=== PATIENT | male | born 1995 | race Caucasian/White ===

== ENCOUNTER 2021-04-30 17:43 | Emergency (ER) | payer BC ==
[2021-04-30 18:03] VITALS: BP 126/59; PULSE 69; TEMP 98.2; BMI 22.9
== END 2021-04-30 19:06 | disposition home or self-care (01) ==
LOC: FER 17:43
DX: J01.90 Acute sinusitis, unspecified (principal)
CPT/HCPCS: 99283-25; C9803; U0003; U0005

== ENCOUNTER 2021-10-17 14:33 | Emergency (ER) | payer BC ==
[2021-10-17] MEDS ORDERED: ACETAMINOPHEN 325 MG TABLET (FP) PO ONE (14:36)
[2021-10-17] MEDS ORDERED: ACETAMINOPHEN 325 MG TABLET (FP) ONE (15:08)
[2021-10-17 15:22] VITALS: BP 128/77; PULSE 80; TEMP 99; BMI 25.8
== END 2021-10-17 16:10 | disposition home or self-care (01) ==
LOC: FER 14:33
DX: S06.0X1A Concussion with loss of consciousness of 30 minutes or less, initial encounter (principal); V48.0XXA Car driver injured in noncollision transport accident in nontraffic accident, initial encounter
CPT/HCPCS: 70450-TC; 99284-25